=== PATIENT | female | born 1940 | race Caucasian/White ===

== ENCOUNTER 2019-02-16 09:53 | Day surgery (SDC) | payer MEDICARE ==
[2019-02-16] MEDS ORDERED: LIDOCAINE 2% MDV (20MG/ML) 20ML VIAL IV ONE (09:54)
[2019-02-16] MEDS ORDERED: PROPOFOL 10 MG/ML VIAL IV ONE (09:54)
[2019-02-16] MEDS ORDERED: MIDAZOLAM HCL 2MG/2ML VIAL IV ONE (09:54)
--- NOTE | 2019-02-22 14:10 | Operative Note ---
DATE OF SERVICE: 02/16/2019. DATE OF SURGERY: 02/16/2019. REQUESTING PROVIDER: Milton Holman MD. SURGEON: Polly Grover MD. PROCEDURE: COLONOSCOPY. INDICATION FOR PROCEDURE: This is a 78-year-old female with history of colon polyps, who presented for surveillance colonoscopy. POSTOPERATIVE DIAGNOSES: 1. A 3mm size polyp in the descending colon that was removed by cold biopsy forceps. 2. Left-sided colon diverticulosis. 3. Otherwise normal colon. SEDATION: Sedation is per Anesthesia. Pulse oximetry was monitored throughout the duration of the procedure to maintain O2 saturation of 90% or greater. Supplemental oxygen was administered via nasal cannula. Cardiac and vital signs were monitored through the duration of the procedure and they were stable. PROCEDURE: The procedure of colonoscopy, risks and alternatives to the procedure, including the risks of bleeding and perforation, among others, were explained to the patient, who voiced understanding and agrees to have the procedure done. Physical examination was performed and the patient was found stable for sedation. The patient was then placed in the left lateral position and sedation was initiated. Digital rectal exam was performed and showed small external hemorrhoids with no palpable rectal masses. A lubricated Olympus PCF1 80AL colonoscope was then inserted into the rectum and under direct visualization was advanced to the cecum without difficulty. The ileocecal valve and appendiceal orifice were identified and photographed. The colonic mucosa was carefully examined upon introduction of the colonoscope. There were scattered diverticula in the sigmoid and descending colon. There were no other lesions noted. The colonoscope was then withdrawn very carefully, reexamining the colonic mucosal surfaces. The bowel preparation was good. The cecum, ascending colon, transverse colon appeared normal. In the descending colon was a 3 mm size polyp removed by cold biopsy forceps. There were no other lesions noted. In the rectum, retroflexion maneuver was performed, and Grade 1 internal hemorrhoids were noted. The colonoscope was withdrawn, and the procedure was terminated. The patient tolerated the procedure well without immediate complications. She remained in stable vital signs and was transferred to the recovery room. PLAN AND RECOMMENDATIONS: 1. Patient is to be on a high fiber diet. 2. She is to have repeat colonoscopy only as needed. Thank you for allowing me to participate in the care of your patient. CONSTANCE
== END 2019-02-16 11:30 | disposition home or self-care (01) ==
LOC: HOP 09:53
PROVIDERS: ATTEND Internal Medicine Gastroenterology
DX: Z12.11 Encounter for screening for malignant neoplasm of colon (principal); Z86.010 Personal history of colon polyps; D12.4 Benign neoplasm of descending colon; K57.30 Diverticulosis of large intestine without perforation or abscess without bleeding; I10 Essential (primary) hypertension

== ENCOUNTER 2019-06-10 10:41 | Emergency (ER) | payer MEDICARE ==
--- NOTE | 2019-06-10 10:56 | Emergency Department Record ---
History of Present Illness - General Chief Complaint: Headache Migraine Stated Complaint: HESTER/BODY ACHES/SORE THROAT/DIZZY Time Seen by Provider: 06/10/19 10:51 Source: Patient Mode of Arrival: Ambulatory Limitations: No limitations - History of Present Illness Initial Comments: The patient is her due to multiple complaints for the last 3 days. She just has not felt well. The patient is complaining of a mild HESTER, mild ST, cough, body aches, chest pressure, mild dysuria, and fatigue for 3 days. She denies any CP, fever, visual changes, back pain, or balance issues. She has had mild dizziness off and on but not now. The patient did drive here without difficulty. MD Complaint: Other Onset/Timin -: Days(s) - Related Data Previous Rx's Medication Instructions Recorded Ondansetron [Zofran Odt] 4 mg SL .Q4-6H PRN #12 tab.rapdis 06/10/19 Allergies Allergy/AdvReac Type Severity Reaction Status Date / Time erythromycin lactobionate Allergy ABDOMINAL Verified 06/10/19 10:49 [From Erythrocin] PAIN iron sucrose complex Allergy HYPERSENSIT Verified 06/10/19 10:49 [From Venofer] IVITY nitrofurantoin Allergy HIVES Verified 06/10/19 10:49 macrocrystalline [From Macrodantin] Tetanus Vaccines and Toxoid Allergy RASH Verified 06/10/19 10:49 [Tetanus Vaccines & Toxoid] amoxicillin AdvReac NAUSEA AND Verified 06/10/19 10:49 VOMITING codeine AdvReac ALTERED Verified 06/10/19 10:49 MENTAL STATUS sulfamethoxazole AdvReac NAUSEA AND Verified 06/10/19 10:49 [From Bactrim] VOMITING trimethoprim [From Bactrim] AdvReac NAUSEA AND Verified 06/10/19 10:49 VOMITING Travel Screening - Travel/Exposure Within Last 30 Days Have you traveled within the last 30 days?: No Review of Systems Constitutional: Denies: Chills, Fever Eyes: Denies: Eye discharge ENT: Denies: Congestion Respiratory: Denies: Cough, Dyspnea Past Medical History - SOCIAL HISTORY Smoking Status: Never smoker Alcohol Use: None Drug Use: None - RESPIRATORY Hx Respiratory Disorders: Yes Hx Bronchitis: Yes Hx Sleep Apnea: Yes Hx of CPAP: Yes - CARDIOVASCULAR Hx Cardio Disorders: Yes Hx Chest Pain: Yes (cleared through cardiology) Hx Hypertension: Yes Hx Palpitations: Yes (only from sinus medications) - NEURO Hx Neuro Disorders: Yes Hx Headaches: Yes - GI Hx GI Disorders: Yes Hx Diverticulitis: Yes (in Sep 2015) Hx GI Bleed: Yes Hx Reflux: Yes Hx Hiatal Hernia: Yes Hx Nausea/Vomiting: Yes Hx Ulcer: Yes Hx of Polyps: Yes - Hx Genitourinary Disorders: Yes Hx Bladder Problem: Yes Comment:: interstitial cystitis - ENDOCRINE Hx Endocrine Disorders: Yes Hx Diabetes: Yes (gestational only) - MUSCULOSKELETAL Hx Musculoskeletal Disorders: Yes Hx Arthritis: Yes (back L1) - PSYCH Hx Psych Problems: Yes Hx Anxiety: Yes Hx Depression: Yes - HEMATOLOGY/ONCOLOGY Hx Hematology/Oncology Disorders: Yes Hx Anemia: Yes Hx Blood Transfusions: No (refuses blood transfusions) Family Medical History Any Significant Family History?: Yes *Cancer Comment: Paternal uncle-stomach cancer Hx Diabetes: Mother Hx Heart Disease: Father, Mother Physical Exam - General General Appearance: Alert, Oriented x3, Cooperative, No acute distress - Head Head exam: Atraumatic, Normocephalic, Normal inspection - Eye Eye exam: Normal appearance, PERRL, EOMI - ENT Throat exam: Normal inspection. negative: Tonsillar erythema, Tonsillomegaly, Tonsillar exudate - Neck Neck exam: Normal inspection, Full ROM. negative: Lymphadenopathy, Meningismus (The neck is very supple.), Tenderness - Respiratory Respiratory exam: Normal lung sounds bilaterally. negative: Respiratory distress - Cardiovascular Cardiovascular Exam: Regular rate, Normal rhythm, Normal heart sounds - GI/Abdominal GI/Abdominal exam: Soft, Normal bowel sounds. negative: Tenderness - Extremities Extremities exam: Normal inspection, Full ROM, Normal capillary refill. negative: Tenderness - Back Back exam: Denies: CVA tenderness (R), CVA tenderness (L) - Neurological Neurological exam: Alert, Normal gait, Oriented X3. negative: Abnormal gait, Altered, Motor sensory deficit - Skin Skin exam: negative: Rash Course Vital Signs 06/10/19 10:46 Temperature 98.6 F Pulse Rate 96 H Respiratory 20 Rate Blood Pressure 192/106 Pulse Ox 98 - Reevaluation(s) Reevaluation #1: The patient is doing very well at this time. Her mild HESTER is almost gone and she has no nausea or vomiting. She feels much better and is ready for home. I did discuss the normal workup and the need for F/U if not better. 06/10/19 12:36 Medical Decision Making - Data Complexity MDM Data: Labs Ordered and/or Reviewed, X-Ray Ordered and/or Reviewed, EKG Ordered and/or Reviewed - Lab Data Result diagrams: 06/10/19 11:05 06/10/19 11:05 - EKG Data -: EKG Interpreted by Me EKG: No Acute Changes, Normal EKG - Radiology Data Radiology results: Report reviewed (CXR: Large hiatal hernia, O/W neg.) Disposition Disposition: Discharge Clinical Impression: Acute viral syndrome Disposition: Home, Self-Care Condition: (2) Stable Instructions: Viral Syndrome (ED) Additional Instructions: Please take Tylenol or Motrin if needed and use the Zofran for nausea. Please see your doctor later this week for recheck and return to the ER for any worsening symptoms. Prescriptions: Ondansetron [Zofran Odt] 4 mg SL .Q4-6H PRN #12 tab.rapdis PRN Reason: Nausea Forms: Patient Portal Access Time of Disposition: 12:38 Quality - Quality Measures Quality Measures: N/A - Blood Pressure Screening View Details: Yes Does Patient Have Any of the Following: Active Dx of HTN Blood Pressure Classification: Hypertensive Reading Systolic Measurement: 192 Diastolic Measurement: 106 Screening for High Blood Pressure: Patient Exclusion, Hx of HTN [[id number]]
[2019-06-10] MEDS ORDERED: ACETAMINOPHEN 1,000 MG/100 ML BTL IVPB ONE (11:00)
[2019-06-10 11:31] LABS: ABSOLUTE NEUTROPHIL COUNT 2.33; BASO % 1.2 % (0-6); EOS % 3.5 % (0-6); HEMATOCRIT 37.4 % (35.0-47.0); HEMOGLOBIN 12.2 gm/dl (11.6-16.0); LYMPH % 27.6 % (16-45); MEAN CELL VOLUME 95.7 fl (81-97); MEAN CORPUSCULAR HEMOGLOBIN 31.2 pg (27-33); MEAN CORPUSCULAR HGB CONC 32.6 g/dl (32-36); MEAN PLATELET VOLUME 10.5 fl (7.4-10.4); MONO % 12.7 % (0-9); PLATELET COUNT 277 K/uL (130-400); RED BLOOD COUNT 3.91 M/uL (3.80-5.40); RED CELL DISTRIBUTION WIDTH 15.1 % (11.5-14.5); WHITE BLOOD COUNT W/O DIFF 4.2 K/uL (4.2-12.2)
[2019-06-10 11:32] LABS: URINE APPEARANCE SL CLOUDY; URINE BILIRUBIN NEGATIVE (NEGATIVE); URINE BLOOD TRACE-I (NEGATIVE); URINE COLOR YELLOW; URINE GLUCOSE (UA) NEGATIVE (NEGATIVE); URINE KETONE NEGATIVE (NEGATIVE); URINE LEUKOCYTE ESTERASE NEGATIVE (NEGATIVE); URINE NITRITE NEGATIVE (NEGATIVE); URINE PROTEIN TRACE (NEGATIVE); URINE UROBILINOGEN 0.2 E.U./dL (0.20 - 1.00)
[2019-06-10 11:48] LABS: BLOOD UREA NITROGEN 19 mg/dL (8-23); CREATININE 0.6 mg/dL (0.5-0.9); EST GLOMERULAR FILTRATION RATE > 60 mL/min
[2019-06-10 11:49] LABS: TOTAL PROTEIN 7.6 g/dL (6.6-8.7)
[2019-06-10 11:51] LABS: GLUCOSE,RANDOM 115 mg/dL (74-109)
[2019-06-10 11:52] LABS: URINE BACTERIA NONE SEEN; URINE EPITHELIAL CELLS 0 - 2 (FEW); URINE RBC 0 - 2 (NONE SEEN); URINE WBC NONE SEEN (0-2/hpf)
[2019-06-10 11:53] LABS: ALT/SGPT 8 U/L (<33)
[2019-06-10 11:54] LABS: ALB/GLOB RATIO 1.6 (1.1-1.8); ALBUMIN 4.7 g/dL (4.0-5.0); ALKALINE PHOSPHATASE 86 U/L (35-104); AST/SGOT 17 U/L (10.0-35.0)
[2019-06-10] MEDS ORDERED: ONDANSETRON HCL IV 4 MG/2 ML VIAL IVP ONE (12:04)
--- NOTE | 2019-06-10 12:10 | RADIOLOGY REPORT ---
EXAMINATION: Two View Chest Radiographs EXAM DATE: 06/10/2019 11:30 AM TECHNIQUE: Frontal and lateral views INDICATION: cough COMPARISON: CT of the abdomen and pelvis 05/14/2016, chest x-ray 04/04/2011 ENCOUNTER: Not applicable FINDINGS: The heart, mediastinum, and pulmonary vasculature are normal. No lung consolidation or pleural effu sions are present. Large hiatal hernia is noted. IMPRESSION: 1. No acute cardiopulmonary process. 2. Large hiatal hernia. Dictated by: YUMIKO JUAN MD on 06/10/2019 12:07 PM. .
[2019-06-10] MEDS ORDERED: 0.9 % SODIUM CHLORIDE 1,000 ML BAG IV ONE (12:14)
[2019-06-10] MEDS ORDERED: SUCRALFATE 1 G/10 ML UD PO ONE (12:14)
== END 2019-06-10 12:50 | disposition home or self-care (01) ==
LOC: ER 10:41
DX: B34.9 Viral infection, unspecified (principal); R51 Headache; R42 Dizziness and giddiness; R07.89 Other chest pain; R30.0 Dysuria; J02.9 Acute pharyngitis, unspecified; R53.83 Other fatigue; I10 Essential (primary) hypertension
CPT/HCPCS: 71046; 80053; 81001; 84484; 85025; 93005; 93010; 96365; 96375; 99284; J2405; J7030